=== PATIENT | male | born 1970 | race African-American/Black ===

== ENCOUNTER 2019-07-01 17:23 | Emergency (ER) | payer SELFPAY ==
[~2019-07-01] VITALS: Ht 177.8 cm; Wt 90.1 kg
--- NOTE | 2019-07-01 17:43 | NUR ---
POLICE OFFICER: EKG COMPLETED IN TRIAGE.
[2019-07-01 18:57] VITALS: BP 148/98
--- NOTE | 2019-07-01 19:09 | NUR ---
Patient presents to ER c/o cough and lightedness x3 days. Patient went to urgent care and they told him he had an abnormal EKG and HTN and to go to the ER. Patient denies DILLON, SOB, CP. Patient has no cardiac hx. Patient is in NAD. Respirations even and unlabored.
[2019-07-01 19:26] LABS: BASOPHILS # (AUTO) 0.05 x10^3/uL (0-0.1); BASOPHILS % (AUTO) 1 % (0-1); EOSINOPHILS # (AUTO) 0.22 x10^3/uL (0-0.4); EOSINOPHILS % (AUTO) 3 % (1-7); LYMPHOCYTES # (AUTO) 2.84 x10^3/uL (1-3.4); LYMPHOCYTES % (AUTO) 43 % (22-44); MD NO; MEAN CORPUSCULAR HEMOGLOBIN 29.8 pg (27.5-34.5); MEAN CORPUSCULAR HGB CONC 32.8 g/dL (33.2-36.2); MEAN CORPUSCULAR VOLUME 90.8 fL (81-97); MEAN PLATELET VOLUME 7.3 fL (7.4-10.4); MONOCYTES # (AUTO) 0.59 x10^3/uL (0.2-0.8); MONOCYTES % (AUTO) 9 % (2-9); NEUTROPHILS # (AUTO) 2.91 x10^3/uL (1.8-6.8); NEUTROPHILS % (AUTO) 44 % (42-75); PLATELET COUNT 311 x10^3/uL (130-400); RED BLOOD COUNT 4.75 x10^6/uL (4.38-5.82); RED CELL DISTRIBUTION WIDTH 13.8 % (9.4-14.8)
[2019-07-01 19:39] LABS: ALBUMIN 3.5 g/dL (3.4-5.0); ANION GAP 5 mmol/L (5-15); CALCIUM 9.2 mg/dL (8.5-10.1); CHLORIDE 109 mmol/L (98-107)
[2019-07-01 19:44] LABS: CREATININE 1.16 mg/dL (0.7-1.3); TROPONIN I 0.023 ng/mL (0.000-0.045)
--- NOTE | 2019-07-01 20:12 | NUR ---
Discharge instructions given along with a primary care list. All questions and concerns addressed. Patient ambulatory with a steady gait. Belongings with patient.
== END 2019-07-01 20:14 | disposition home or self-care (01) ==
LOC: ED 19:23
DX: J20.8 Acute bronchitis due to other specified organisms (principal); I10 Essential (primary) hypertension; F17.200 Nicotine dependence, unspecified, uncomplicated
CPT/HCPCS: 36415; 71045; 80048; 82040; 84484; 85025; 93005; 99284

== ENCOUNTER 2020-05-11 12:58 | Emergency (ER) | payer MEDICAID ==
[2020-05-11 14:37] LABS: BASOPHILS % (AUTO) 0 % (0-1); EOSINOPHILS % (AUTO) 1 % (1-7); LYMPHOCYTES % (AUTO) 29 % (22-44); MEAN CORPUSCULAR HEMOGLOBIN 31.1 pg (27.5-34.5); MEAN CORPUSCULAR HGB CONC 33.7 g/dL (33.2-36.2); MEAN PLATELET VOLUME 7.5 fL (7.4-10.4); MONOCYTES % (AUTO) 8 % (2-9); NEUTROPHILS % (AUTO) 62 % (42-75); PLATELET COUNT 339 x10^3/uL (130-400); RED BLOOD COUNT 5.13 x10^6/uL (4.38-5.82)
[2020-05-11 14:41] LABS: MD NO
[2020-05-11 14:44] LABS: ALBUMIN 4.1 g/dL (3.4-5.0); ANION GAP 6 mmol/L (5-15); CALCIUM 9.1 mg/dL (8.5-10.1); CHLORIDE 107 mmol/L (98-107); CREATININE 1.53 mg/dL (0.7-1.3)
--- NOTE | 2020-05-11 16:30 | NUR ---
NO ANSWER IN LOBBY.
--- NOTE | 2020-05-11 16:43 | NUR ---
PT TO RM FROM LOBBY AT THIS TIME
[2020-05-11] MEDS ORDERED: AMLODIPINE 5 MG TABLET ONE (17:19)
[2020-05-11 17:20] VITALS: BP 190/105
[2020-05-11] MEDS ORDERED: PLEASE ENTER WEIGHT MC SCH (17:30)
[2020-05-11] MEDS ORDERED: AMLODIPINE 5 MG TABLET PO ONE (17:30)
--- NOTE | 2020-05-11 17:59 | NUR ---
OK TO DC WITH ELEVATED BP PER ERMD, PT ASYPMTOMATIC, PT GIVEN SCRIPT TO FILL.
== END 2020-05-11 18:01 | disposition home or self-care (01) ==
LOC: ED 17:00
DX: N28.9 Disorder of kidney and ureter, unspecified (principal); I10 Essential (primary) hypertension; I44.0 Atrioventricular block, first degree
CPT/HCPCS: 36415; 80048; 82040; 85025; 93005; 99284